=== PATIENT | female | born 1980 | race Caucasian/White ===

== ENCOUNTER 2017-07-29 10:47 | Emergency (ER) | payer OTHER ==
[2017-07-29 10:47] VITALS: BMI 24.9
[2017-07-29 11:06] VITALS: TEMP 97.5; O2SAT 99
[2017-07-29 11:36] LABS: RBC URINE < 1 /hpf (0-3); URINE BILIRUBIN NEGATIVE (NEGATIVE); URINE BLOOD NEGATIVE (NEGATIVE); URINE COLOR Straw (YELLOW); URINE GLUCOSE (UA) NORMAL (Normal); URINE KETONE NEGATIVE (NEGATIVE); URINE LEUKOCYTE ESTERASE NEG Leu/uL (Negative); URINE PROTEIN NEGATIVE (NEGATIVE); URINE UROBILINOGEN NORMAL mg/dL (0.2-1.0); WBC URINE < 1 /hpf (0-5)
--- NOTE | 2017-07-29 11:44 | C.PDOC ---
History Of Present Illness 36 year old female, with a past medical history of ovarian cysts and past surgical history of brain surgery, presents to the ED with complaints of left lower back pain since yesterday with associated nausea. Patient reports she has had increased frequency of urination for one week but no dysuria. She notes episodes of diarrhea in the last week that have resolved and is now having normal bowel movements. LMP was 07/13/2017. Patient denies fever, vomiting, dysuria, abdominal pain, lower extremity pain, incontinence, weakness, or numbness. She states pain is similar to when she had an ovarian cyst in the past. Time Seen by Provider: 07/29/17 11:16 Chief Complaint (Nursing): Back Pain History Per: Patient History/Exam Limitations: no limitations Onset/Duration Of Symptoms: Days (1 day of lower back pain, 7 days of increased frequency ) Current Symptoms Are (Timing): Still Present Quality Of Discomfort: "Pain" Previous Symptoms: None Associated Symptoms: None Exacerbating Factor(s): Other (lying on back ) Recent travel outside of the [place]: No Past Medical History Reviewed: Historical Data, Nursing Documentation, Vital Signs Vital Signs: Last Vital Signs Temp 97.5 F L 07/29/17 14:43 Pulse 81 07/29/17 14:43 Resp 18 07/29/17 14:43 BP 128/76 07/29/17 14:43 Pulse Ox 99 07/29/17 15:05 - Medical History PMH: Seizures Family History: States: Unknown Family Hx - Social History Hx Tobacco Use: No Hx Alcohol Use: No Hx Substance Use: No - Immunization History Hx Tetanus Toxoid Vaccination: Yes Hx Influenza Vaccination: No Hx Pneumococcal Vaccination: No Review Of Systems Constitutional: Negative for: Fever, Chills Cardiovascular: Negative for: Chest Pain Respiratory: Negative for: Shortness of Breath Gastrointestinal: Positive for: Nausea. Negative for: Vomiting, Abdominal Pain , Diarrhea Genitourinary: Positive for: Frequency. Negative for: Dysuria, Incontinence, Hematuria Musculoskeletal: Positive for: Back Pain (lower back pain ). Negative for: Leg Pain Neurological: Negative for: Weakness, Numbness Physical Exam - Physical Exam Additional Physical Exam Comments: Constitutional: No acute distress. Head: Normocephalic. Atraumatic. Eyes: PERRL. ENT: Moist mucous membranes. Neck: Supple. Cardiovascular: Regular rate. Radial pulse 2+ bilaterally. Chest: No tenderness. Respiratory: Clear to auscultation bilaterally. GI: Soft. Nontender. Nondistended. Back: No CVA tenderness. Left flank tenderness. Musculoskeletal: No tenderness or swelling of extremities. Skin: No rash. Neurologic: Alert, no focal deficit. ED Course And Treatment - Laboratory Results Result Diagrams: 07/29/17 12:06 07/29/17 12:06 O2 Sat by Pulse Oximetry: 99 (RA) - CT Scan/US Pelvic ultrasound Other Rad Studies (CT/US): Read By Radiologist, Radiology Report Reviewed CT/US Interpretation: FINDINGS: The uterus is anteverted measuring approximately 9.5 x 4.2 x 5.6 cm. Endometrial stripe measures approximately 6.9 mm. . There are small cervical nabothian cyst measuring approximately rios 7.8 mm greatest dimension. Left ovary (which is only seen on transabdominal study) measures 2.4 x 1.6 x 3.0 cm and exhibits arterial flow. The right ovary measures 3.8 x 2.6 x 3.2 cm and also exhibits arterial flow. Complex right adnexal cyst measuring 1.9 x 1.5 x 1.8 cm. IMPRESSION: Complex right ovarian cyst. . Repeat pelvic ultrasound could be performed during the next menstrual cycle shortly following cessation of menses to assess for resolution. Small cervical nabothian cyst. Progress Note: Transvaginal US, UA, and blood work was ordered. Patient was given Toradol and Zofran. Medical Decision Making Medical Decision Making: FINDINGS: The uterus is anteverted measuring approximately 9.5 x 4.2 x 5.6 cm Endometrial stripe measures approximately 6.9 mm. . There are small cervical nabothian cyst measuring approximately rios 7.8 mm greatest dimension. Left ovary (which is only seen on transabdominal study) measures 2.4 x 1.6 x 3.0 cm and exhibits arterial flow. The right ovary measures 3.8 x 2.6 x 3.2 cm and also exhibits arterial flow. Complex right adnexal cyst measuring 1.9 x 1.5 x 1.8 cm. IMPRESSION: Complex right ovarian cyst. . Repeat pelvic ultrasound could be performed during the next menstrual cycle shortly following cessation of menses to assess for resolution. Small cervical nabothian cyst. Patient discharged home, f/u OBGYN, return to ED for worsening pain, fever, vomiting, dyspnea, bleeding, or any other problem. Disposition - Disposition Disposition: HOME/ ROUTINE Disposition Time: 14:35 Condition: STABLE Prescriptions: Ibuprofen [Motrin] 600 mg PO Q6 #25 tab Instructions: Ovarian Cyst (ED) Forms: [employer] [facility] (Cook Islander) - Clinical Impression Clinical Impression: Ovarian cyst - Scribe Statement The provider has reviewed the documentation as recorded by the Scribe Chio Farley All medical record entries made by the Jatinderibreagan were at my direction and personally dictated by me. I have reviewed the chart and agree that the record accurately reflects my personal performance of the history, physical exam, medical decision making, and the department course for this patient. I have also personally directed, reviewed, and agree with the discharge instructions and disposition.
[2017-07-29 12:17] LABS: BASO % 0.5 % (0.0-2.0); EOS % 0.5 % (0.0-4.0); LYMPH # 1.1 K/uL (1.0-4.3); LYMPH % 19.4 % (20.0-40.0); MEAN CORPUSCULAR HEMOGLOBIN 31.1 pg (27.0-31.0); MEAN CORPUSCULAR HGB CONC 32.9 g/dL (33.0-37.0); MEAN PLATELET VOLUME 12.8 fL (7.2-11.7); MONO # 0.6 K/uL (0.0-0.8); MONO % 10.3 % (0.0-10.0); RED CELL DISTRIBUTION WIDTH 13.5 % (11.5-14.5); WHITE BLOOD COUNT 5.5 K/uL (4.8-10.8)
[2017-07-29 12:19] LABS: CHLORIDE 100 mmol/L (98-107); POTASSIUM 4.3 mmol/L (3.6-5.2); SODIUM 135 mmol/L (132-148)
[2017-07-29 12:21] LABS: ALB/GLOB RATIO 1.4 (1.0-2.1); AST/SGOT 19 U/L (14-36); BILIRUBIN,TOTAL 0.5 mg/dL (0.2-1.3); CARBON DIOXIDE 25 mmol/L (22-30); GFR AFRICAN-AMERICAN > 60; TOTAL PROTEIN 7.6 g/dL (6.3-8.3)
[2017-07-29 12:22] LABS: ALKALINE PHOSPHATASE 54 U/L (38-126); ALT/SGPT 28 U/L (9-52); BLOOD UREA NITROGEN 14 mg/dL (7-17); CALCIUM 9.1 mg/dl (8.6-10.4); GLUCOSE,RANDOM 79 mg/dL (65-105)
[2017-07-29 12:32] LABS: MEAN CELL VOLUME 94.5 fL (81.0-99.0)
--- NOTE | 2017-07-29 14:30 | US ---
PROCEDURE: Pelvic ultrasound dated 07/29/2017 HISTORY: Pelvic pain ;, assess cyst/torsion COMPARISON: No prior study available for comparison TECHNIQUE: Transabdominal/transvaginal sonographic evaluation of the pelvis performed. FINDINGS: The uterus is anteverted measuring approximately 9.5 x 4.2 x 5.6 cm Endometrial stripe measures approximately 6.9 mm. . There are small cervical nabothian cyst measuring approximately rios 7.8 mm greatest dimension. Left ovary (which is only seen on transabdominal study) measures 2.4 x 1.6 x 3.0 cm and exhibits arterial flow. The right ovary measures 3.8 x 2.6 x 3.2 cm and also exhibits arterial flow. Complex right adnexal cyst measuring 1.9 x 1.5 x 1.8 cm. IMPRESSION: Complex right ovarian cyst. . Repeat pelvic ultrasound could be performed during the next menstrual cycle shortly following cessation of menses to assess for resolution. Small cervical nabothian cyst.
[2017-07-29 14:43] VITALS: BP 128/76; PULSE 81; RESP 18
== END 2017-07-29 14:42 | disposition home or self-care (01) ==
LOC: C.ER 10:47
DX: N83.209 Unspecified ovarian cyst, unspecified side (principal)
CPT/HCPCS: 76830; 76856; 80053; 81001; 84703; 85025; 96372; 99284; J1885

== ENCOUNTER 2017-10-13 11:27 | Emergency (ER) | payer OTHER ==
[2017-10-13 11:28] VITALS: BMI 24.9
[2017-10-13 11:33] VITALS: BP 105/73; PULSE 73; TEMP 97.6; O2SAT 98
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
[2017-10-13 12:04] VITALS: RESP 16
== END 2017-10-13 12:03 | disposition home or self-care (01) ==
LOC: C.ER 11:27
DX: T24.111A Burn of first degree of right thigh, initial encounter (principal); X16.XXXA Contact with hot heating appliances, radiators and pipes, initial encounter

== ENCOUNTER 2018-01-08 12:59 | Emergency (ER) | payer OTHER ==
[2018-01-08 12:59] VITALS: BMI 24.9
[2018-01-08 13:21] VITALS: BP 114/76; PULSE 80; RESP 18; TEMP 97.9; O2SAT 96
--- NOTE | 2018-01-08 14:04 | C.PDOC ---
History Of Present Illness 37 year old female presents to the ED today complaining of right side dental pain for 5 days. She states the pain radiates from her tooth to the upper right side of her face. Patient reports taking Motrin with relief for the past days but she "ran out of it." She also tried to follow up with her dentist but his office has been closed . Patient denies fever, nausea, visual changes, headache , difficulty of breathing or swallowing. Time Seen by Provider: 01/08/18 13:45 Chief Complaint (Nursing): Headache History Per: Patient History/Exam Limitations: no limitations Onset/Duration Of Symptoms: Days (x 5) Current Symptoms Are (Timing): Still Present Past Medical History Reviewed: Historical Data, Nursing Documentation, Vital Signs Vital Signs: Last Vital Signs Temp 97.9 F 01/08/18 13:17 Pulse 80 01/08/18 13:17 Resp 18 01/08/18 13:17 BP 114/76 01/08/18 13:17 Pulse Ox 96 01/08/18 15:06 - Medical History PMH: No Chronic Diseases, Seizures Surgical History: No Surg Hx Family History: States: Unknown Family Hx - Social History Hx Tobacco Use: No Hx Alcohol Use: No Hx Substance Use: No - Immunization History Hx Tetanus Toxoid Vaccination: Yes Hx Influenza Vaccination: Yes Hx Pneumococcal Vaccination: Yes Review Of Systems Except As Marked, All Systems Reviewed And Found Negative. Constitutional: Negative for: Fever, Chills ENT: Positive for: Mouth Pain (Dental pain) Respiratory: Negative for: Shortness of Breath Gastrointestinal: Negative for: Nausea, Vomiting Physical Exam - Physical Exam Appears: Well, Non-toxic, No Acute Distress Skin: Normal Color, Warm Head: Atraumatic, Normacephalic Eye(s): bilateral: Normal Inspection, PERRL, EOMI Ear(s): Bilateral: Normal Nose: Normal Oral Mucosa: Moist Tongue: Normal Appearing Lips: Normal Appearing Teeth: Tender To Palpation (Tooth #6) Gingiva: No Erythema, Swelling (Area around tooth #6), Tender (area around tooth #6), No Abscess, No Other (fluctuance) Throat: Normal, No Erythema, No Exudate, No Drooling Neck: Normal, Normal ROM, Supple Chest: Symmetrical Cardiovascular: Rhythm Regular Respiratory: Normal Breath Sounds, No Accessory Muscle Use Neurological/Psych: Oriented x3, Normal Speech ED Course And Treatment O2 Sat by Pulse Oximetry: 96 (RA) Pulse Ox Interpretation: Normal Progress Note: Patient given amoxicillin 500mg PO, Motrin 600mg PO. Patient given intsruction to follow up with dentist and prescribed Motrin for pain relief. Disposition - Disposition Disposition: HOME/ ROUTINE Disposition Time: 14:04 Condition: STABLE Additional Instructions: Follow up with dentist in 1-2 days. Return to ER if symptoms persist or worsen. Prescriptions: Amoxicillin 875 mg PO BID #20 tablet Ibuprofen [Motrin] 600 mg PO Q6 PRN #20 tab PRN Reason: Pain, Mild (1-3) Instructions: Dental Pain (DC) Forms: [employer] (French) - Clinical Impression Clinical Impression: Pain, dental - PA / [employer]LLER / Resident Statement MD/DO has reviewed & agrees with the documentation as recorded. - Scribe Statement The provider has reviewed the documentation as recorded by the Scribe Lauren Thompsonaged All medical record entries made by the Scribe were at my direction and personally dictated by me. I have reviewed the chart and agree that the record accurately reflects my personal performance of the history, physical exam, medical decision making, and the department course for this patient. I have also personally directed, reviewed, and agree with the discharge instructions and disposition.
== END 2018-01-08 14:22 | disposition home or self-care (01) ==
LOC: C.ER 12:59
DX: K08.89 Other specified disorders of teeth and supporting structures (principal)

== ENCOUNTER 2018-05-28 18:48 | Emergency (ER) | payer OTHER ==
[2018-05-28 18:48] VITALS: BMI 24.9
[2018-05-28] MEDS ORDERED: DiphenhydrAMINE 50 mg/ml Inj IVP STA (20:19)
[2018-05-28] MEDS ORDERED: Sodium Chloride 0.9% 1,000 ML IV STA (20:19)
--- NOTE | 2018-05-28 20:23 | C.PDOC ---
History Of Present Illness 37yo female, history of brain surgery (7 weeks ago), comes to ER for evaluation of right sided headache, radiating to the front of her head x 3 days. She states the pain is sharp, as if someone is "stabbing" the right side of her head. She reports associated lightheadedness, photophobia, and sensitivity to loud sounds. She states she had similar headache in the past, which was stress induced and relieved with Ibuprofen use; patient states she last took Ibuprofen 2 days ago with minimal relief. She denies any associated nausea, vomiting, weakness or numbness. Time Seen by Provider: 05/28/18 19:43 Chief Complaint (Nursing): Headache History Per: Patient History/Exam Limitations: no limitations Onset/Duration Of Symptoms: Days (3) Current Symptoms Are (Timing): Still Present Associated Symptoms: Photophobia. denies: Blurred Vision, Vomiting, Extremity Weakness Additional History Per: Patient Past Medical History Reviewed: Historical Data, Nursing Documentation, Vital Signs Vital Signs: Last Vital Signs Temp 98.1 F 05/28/18 18:55 Pulse 71 05/28/18 18:55 Resp 16 05/28/18 18:55 BP 113/72 05/28/18 18:55 Pulse Ox 99 05/28/18 20:38 - Medical History PMH: Seizures Surgical History: Other Surgeries: brain surgery Family History: States: No Known Family Hx, Unknown Family Hx - Social History Hx Tobacco Use: No Hx Alcohol Use: No Hx Substance Use: No - Immunization History Hx Tetanus Toxoid Vaccination: Yes Hx Influenza Vaccination: Yes Hx Pneumococcal Vaccination: Yes Review Of Systems Constitutional: Negative for: Fever, Chills Eyes: Positive for: Other (photophobia) ENT: Positive for: Other (sensitivity to loud sounds) Cardiovascular: Positive for: Light Headedness Gastrointestinal: Negative for: Nausea, Vomiting Neurological: Positive for: Headache. Negative for: Weakness, Numbness Physical Exam - Physical Exam Additional Physical Exam Comments: Constitutional: No acute distress. Head: Normocephalic. Atraumatic. Eyes: PERRL. ENT: Moist mucous membranes. Neck: Supple. Cardiovascular: Regular rate. Radial pulse 2+ bilaterally. Chest: No tenderness. Respiratory: Clear to auscultation bilaterally. GI: Soft. Nontender. Back: No CVA tenderness. Musculoskeletal: No tenderness or swelling of extremities. Skin: No rash. Neurologic: Alert, oriented x3 no focal deficit. 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 No hemorrhage. No significant white matter disease. Ventricles: Unremarkable. No ventriculomegaly. Bones/joints: Right temporal craniotomy. No acute fracture. Soft tissues: Unremarkable. Sinuses: Unremarkable as visualized. No acute sinusitis. Mastoid air cells: Unremarkable as visualized. No mastoid effusion. 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 No acute findings. Patient feels better. No acute findings. Will discharge, f/u PMD, return to ED for worsening pain, fever, vomiting, dyspnea, or any other problem. Disposition - Disposition Disposition: HOME/ ROUTINE Disposition Time: 22:22 Condition: STABLE Instructions: Headache, Adult Forms: [facility] (Austrian) - Clinical Impression Clinical Impression: Headache - Scribe Statement The provider has reviewed the documentation as recorded by the Chaparrita Javier Provider Attestation: All medical record entries made by the Chaparrita were at my direction and personally dictated by me. I have reviewed the chart and agree that the record accurately reflects my personal performance of the history, physical exam, medical decision making, and the department course for this patient. I have also personally directed, reviewed, and agree with the discharge instructions and disposition.
[2018-05-28 21:03] LABS: BASO % 0.6 % (0.0-2.0); EOS # 0.1 K/uL (0.0-0.7); EOS % 1.2 % (0.0-4.0); HEMOGLOBIN 11.1 g/dL (11.0-16.0); LYMPH # 1.5 K/uL (1.0-4.3); LYMPH % 24.8 % (20.0-40.0); MEAN CORPUSCULAR HEMOGLOBIN 29.6 pg (27.0-31.0); MEAN CORPUSCULAR HGB CONC 32.7 g/dL (33.0-37.0); MEAN PLATELET VOLUME 12.3 fL (7.2-11.7); MONO # 0.7 K/uL (0.0-0.8); MONO % 10.7 % (0.0-10.0); NEUT # 3.9 K/uL (1.8-7.0); NEUT % 62.7 % (50.0-75.0); NRBC % 0.1 % (0.0-2.0); RBC 3.74 Mil/uL (3.80-5.20); RED CELL DISTRIBUTION WIDTH 15.8 % (11.5-14.5); WHITE BLOOD COUNT 6.2 K/uL (4.8-10.8)
[2018-05-28 21:05] LABS: MEAN CELL VOLUME 90.4 fL (81.0-99.0)
[2018-05-28] MEDS ORDERED: DiphenhydrAMINE 50 mg/ml Inj ONE (21:06)
[2018-05-28 21:35] LABS: ALB/GLOB RATIO 1.2 (1.0-2.1); ALBUMIN 4.1 g/dL (3.5-5.0); ALT/SGPT 20 U/L (9-52); AST/SGOT 20 U/L (14-36); BLOOD UREA NITROGEN 18 mg/dL (7-17); CALCIUM 9.4 mg/dl (8.6-10.4); GFR NON-AFRICAN AMERICAN > 60
[2018-05-28 22:41] VITALS: BP 97/64; PULSE 73; RESP 20; TEMP 97.7; O2SAT 98
--- NOTE | 2018-05-29 09:39 | CT ---
Date of service: 05/28/2018 PROCEDURE: CT HEAD WITHOUT CONTRAST. HISTORY: headache, h/o brain tumor s/p resection COMPARISON: 08/09/2015 TECHNIQUE: Axial computed tomography images were obtained through the head/brain without intravenous contrast. Radiation dose: Total exam DLP = 893.35 mGy-cm. This CT exam was performed using one or more of the following dose reduction techniques: Automated exposure control, adjustment of the mA and/or kV according to patient size, and/or use of iterative reconstruction technique. FINDINGS: HEMORRHAGE: No intracranial hemorrhage. BRAIN: Extensive right temporal encephalomalacia status post craniotomy/ craniectomy right temporoparietal. History of neoplasm. No intracranial mass identified elsewhere. There is 3 mm midline shift towards the right, possibly secondary to encephalomalacia change. This is unchanged from prior examination. VENTRICLES: Unremarkable. No hydrocephalus. CALVARIUM: Right temporal/parietal craniotomy. Right inferior temporal craniectomy. PARANASAL SINUSES: Unremarkable as visualized. No significant inflammatory changes. MASTOID AIR CELLS: Unremarkable as visualized. No inflammatory changes. OTHER FINDINGS: None. 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 Chronic 3 mm midline shift towards the right. No intracranial mass or hemorrhage. No evidence of acute infarct.
== END 2018-05-28 22:40 | disposition home or self-care (01) ==
LOC: C.ER 18:48
DX: R51 Headache (principal)
CPT/HCPCS: 70450; 80053; 84702; 85025; 96374; 96375; 99285; J1200; J1885; J2765; J7030

== ENCOUNTER 2019-02-04 09:04 | Emergency (ER) | payer MEDICAID, OTHER ==
[2019-02-04 09:05] VITALS: BMI 24.9
[2019-02-04 10:07] VITALS: PULSE 68; RESP 16; O2SAT 100
[2019-02-04] MEDS ORDERED: Aluminum Hydroxide/Magnesium Hydroxide Susp (30 mL) PO STA (10:45)
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
[2019-02-04] MEDS ORDERED: Aluminum Hydroxide/Magnesium Hydroxide Susp (30 mL) ONE (11:03)
[2019-02-04 12:56] VITALS: BP 125/78; TEMP 98.3
== END 2019-02-04 12:55 | disposition home or self-care (01) ==
LOC: C.ER 09:04
DX: T54.91XA Toxic effect of unspecified corrosive substance, accidental (unintentional), initial encounter (principal); R11.10 Vomiting, unspecified